=== PATIENT | male | born 1995 | race Caucasian/White ===

== ENCOUNTER 2016-05-16 21:14 | Emergency (ER) | payer OTHER ==
[~2016-05-16] VITALS: Ht 180.3 cm; Wt 111.4 kg
[2016-05-16 21:20] VITALS: BP 135/89; TEMP 36.9; Ht 180.3 cm; Wt 111.4 kg
--- NOTE | 2016-05-16 22:21 | DIAGNOSTIC IMAGING REPORT ---
RIGHT HAND MIN 3 VIEWS ROUTINE CLINICAL HISTORY: R hand injury - punched a wall Right COMPARISON STUDY: None. FINDINGS: There is a transverse fracture through the neck of the right fifth metacarpal. This demonstrates volar angulation. There is soft tissue swelling at the ulnar side of the hand. IMPRESSION: Right fifth metacarpal fracture as described above. Electronically signed by: Ovidio Roe M.D. 05/16/2016 10:19 PM Dictated Date/Time: 05/16/2016 10:18 PM
[2016-05-16] MEDS ORDERED: TRAM-10 PO (22:27)
[2016-05-16] MEDS ORDERED: TRAMADOL HCL 50 MG HOME PACK PO ONE (22:30)
[2016-05-16 23:03] VITALS: PULSE 85; O2SAT 98
--- NOTE | 2016-05-16 23:18 | EMERGENCY ROOM VISIT NOTE ---
History First contact with patient: 21:27 Chief Complaint: HAND PAIN/INJURY Stated Complaint: R HAND PAIN AND SWELLING History of Present Illness The patient is a 21 year old male who presents to the Emergency Room with complaints of right hand pain after becoming angry and punching a wall approximately 45 minutes prior to arrival. The patient is a [employer] graduate. He received an email that he did not get a job that he applied for, and became angry. He complains of pain over the ulnar aspect of the hand. He denies any wrist, forearm or elbow pain. The patient is [id number], and rates his discomfort a 5 out of 10. Review of Systems 10 system review was performed and was negative except for pertinent positives and negatives as indicated in history of present illness Past Medical/Surgical History Medical Problems: (1) No significant past medical history Surgical Problems: (1) No history of previous surgery Family History FH: cancer FH: diabetes mellitus FH: heart disease FH: kidney disease FH: lung disease Social History Smoking Status: Current Some Day Smoker Alcohol Use: occasionally Marital Status: single Housing Status: lives with family Occupation Status: unemployed Current/Historical Medications Scheduled PRN Tramadol (Ultram), 1-2 TAB PO Q4H PRN for Pain Allergies Coded Allergies: No Known Allergies (Unverified , 05/16/16) Physical Exam Vital Signs Date Time Temp Pulse Resp B/P Pulse Ox O2 Delivery O2 Flow Rate FiO2 05/16/16 23:03 85 18 98 05/16/16 21:20 36.9 81 16 135/89 95 Room Air Pain Rating (0-10): 3.0 Physical Exam CONSTITUTIONAL: Healthy and well nourished. Alert and oriented X 3 with positive affect. HEENT: Normocephalic, atraumatic. Pupils equal, round and reactive. NECK: Full active range of motion without discomfort. MUSCULOSKELETAL: Examination of the right hand shows edema and ecchymosis over the ulnar aspect of the hand. He is tender over the distal fifth metacarpal. Capillary refill is less than 2 seconds. No tenderness to palpation about the wrist. INTEGUMENTARY: No rash or other significant dermatologic conditions noted. NEUROLOGIC: Right hand and fingers are sensory intact. Medical Decision & Procedures ER Provider Diagnostic Interpretation: My interpretation of right hand x-rays shows an angulated fracture of the fifth metacarpal neck. Radiologist report is as follows: RIGHT HAND MIN 3 VIEWS ROUTINE CLINICAL HISTORY: R hand injury - punched a wall Right COMPARISON STUDY: None. FINDINGS: There is a transverse fracture through the neck of the right fifth metacarpal. This demonstrates volar angulation. There is soft tissue swelling at the ulnar side of the hand. IMPRESSION: Right fifth metacarpal fracture as described above. Medications Administered Medications (Trade) Dose Ordered Sig/Raghav Route Start Time Stop Time Status Last Admin Dose Admin Tramadol HCl (Ultram Home Pack) 1 [facility] UD ONCE PO 05/16/16 22:30 05/16/16 22:31 DC 05/16/16 22:55 1 [facility] ED Course Patient history and physical exam were performed. Nurse's notes were reviewed. The patient had gone to x-ray prior to my initial exam. X-rays of the right hand confirms an angulated fracture of the fifth metacarpal neck. An Ortho- Glass splint was applied. Neurovascular check after splint placement was normal. The patient was encouraged to ice and elevate the hand for swelling. Ibuprofen and Tylenol in alternating fashion as needed for pain relief. He was provided a home pack and prescription for Ultram as needed for breakthrough pain. Provided contact information for [facility]. The patient reports that he will be going back to [place] on Saturday. He was provided copies of his x-rays on disc encase he needs to follow-up with orthopedics back home. The patient was happy with plan of care, and rated his discomfort a 4 out of 10 at the time of discharge. Medical Decision Impression Primary Impression: Displaced fracture of neck of right fifth metacarpal bone Departure Information Dispostion Home / Self-Care Condition GOOD Prescriptions Tramadol (Ultram) 50 Mg Tab 1-2 TAB PO Q4H Y for Pain, #20 TAB For Initial Treatment Prov: Jesús Wild PA 05/16/16 Referrals Feliberto Winter M.D. Forms HOME CARE DOCUMENTATION FORM, IMPORTANT VISIT INFORMATION Patient Instructions A Signature Page, [facility] Additional Instructions Ice and elevate hand for swelling and pain. Ibuprofen 800 mg and/or Tylenol 1000 mg every 8 hours. You may also alternate these medications for more effective pain relief: Ibuprofen --4 HRS--> Tylenol --4 HRS--> ibuprofen --4 HRS--> Tylenol .... Ultram if needed for additional pain relief. Follow-up with [facility] for further evaluation and treatment - call tomorrow morning for appointment. If you are unable to see an orthopedic surgeon while in [place], take your disc with your x-rays and follow-up with an orthopedic surgeon immediately upon return home. We suggest that you see an orthopedic surgeon within the next 5-7 days. Problem Qualifiers Primary Impression: Displaced fracture of neck of right fifth metacarpal bone Encounter type: initial encounter Fracture type: closed Qualified Codes: S62.336A - Displaced fracture of neck of fifth metacarpal bone, right hand, initial encounter for closed fracture
== END 2016-05-16 23:05 | disposition home or self-care (01) ==
LOC: C.EDB 21:16 → C.EDD 23:05
DX: S62.336A Displaced fracture of neck of fifth metacarpal bone, right hand, initial encounter for closed fracture (principal); W22.8XXA Striking against or struck by other objects, initial encounter; F17.200 Nicotine dependence, unspecified, uncomplicated; Z80.9 Family history of malignant neoplasm, unspecified; Z83.3 Family history of diabetes mellitus; Z82.49 Family history of ischemic heart disease and other diseases of the circulatory system; Z84.1 Family history of disorders of kidney and ureter